=== PATIENT | female | born 1965 | race Caucasian/White ===

== ENCOUNTER 2016-05-17 13:10 | Outpatient (CLI) | payer OTHER ==
[~2016-05-17] VITALS: Ht 162.6 cm; Wt 76.2 kg
[~2016-05-17 13:10] MED LIST: ACETAMINOPHEN TAB 650MG DOSE (2X325MG) PO ONE; AMLO25TA PO; ATEN25TA PO; DRIS50002 PO; FOLI1TAB2 PO; HYDR100C PO; LEVO25TA5 PO; LOMO2.5T PO; PRED20TA PO; TRAZ50TA4 PO; VEDOLIZUMAB 300 MG in NS 250 ML IV ONE; VITA100L PO; diphenhydrAMINE 25 MG CAP PO ONE
== END 2016-05-17 14:35 | disposition home or self-care (01) ==
LOC: M INFU 13:10
PROVIDERS: ATTEND Internal Medicine Gastroenterology
DX: K50.90 Crohn's disease, unspecified, without complications (principal)
CPT/HCPCS: 96413; J3380

== ENCOUNTER 2016-07-29 12:20 | Outpatient (CLI) | payer OTHER ==
[~2016-07-29] VITALS: Ht 162.6 cm; Wt 76.2 kg
[~2016-07-29 12:20] MED LIST changes: -ACETAMINOPHEN TAB 650MG DOSE (2X325MG) PO ONE; -VEDOLIZUMAB 300 MG in NS 250 ML IV ONE; -diphenhydrAMINE 25 MG CAP PO ONE
[2016-07-29] MEDS ORDERED: ACETAMINOPHEN TAB 650MG DOSE (2X325MG) PO ONE (12:30)
[2016-07-29] MEDS ORDERED: diphenhydrAMINE 25 MG CAP PO ONE (12:30)
[2016-07-29] MEDS ORDERED: VEDOLIZUMAB 300 MG in NS 250 ML IV ONE (13:00)
== END 2016-07-29 13:45 | disposition home or self-care (01) ==
LOC: M INFU 12:20
PROVIDERS: ATTEND Internal Medicine Gastroenterology
DX: K50.10 Crohn's disease of large intestine without complications (principal)
CPT/HCPCS: 96413; J3380

== ENCOUNTER 2016-08-09 13:41 | Outpatient (CLI) | payer OTHER ==
[~2016-08-09] VITALS: Ht 162.6 cm; Wt 76.2 kg
[2016-08-09] MEDS ORDERED: ACETAMINOPHEN TAB 650MG DOSE (2X325MG) PO ONE (14:00)
[2016-08-09] MEDS ORDERED: VEDOLIZUMAB 300 MG in NS 250 ML IV ONE (14:00)
[2016-08-09] MEDS ORDERED: diphenhydrAMINE 25 MG CAP PO ONE (14:00)
== END 2016-08-09 15:15 | disposition home or self-care (01) ==
LOC: M INFU 13:41
PROVIDERS: ATTEND Internal Medicine Gastroenterology
DX: K50.10 Crohn's disease of large intestine without complications (principal)
CPT/HCPCS: 96413; J3380

== ENCOUNTER 2016-09-06 13:09 | Outpatient (CLI) | payer OTHER ==
[~2016-09-06] VITALS: Ht 162.6 cm; Wt 76.2 kg
[2016-09-06] MEDS ORDERED: diphenhydrAMINE 25 MG CAP PO ONE (13:30)
[2016-09-06] MEDS ORDERED: ACETAMINOPHEN TAB 650MG DOSE (2X325MG) PO ONE (13:30)
[2016-09-06] MEDS ORDERED: VEDOLIZUMAB 300 MG in NS 250 ML IV ONE (13:30)
== END 2016-09-06 14:40 | disposition home or self-care (01) ==
LOC: M INFU 13:09
PROVIDERS: ATTEND Internal Medicine Gastroenterology
DX: K50.10 Crohn's disease of large intestine without complications (principal)
CPT/HCPCS: 96413; J3380

== ENCOUNTER → 2016-10-18 | Outpatient (CLI) | payer OTHER ==
[~2016-10-18] VITALS: Ht 165.1 cm; Wt 94.3 kg
[~2016-10-18] MED LIST changes: +ENTY1INJ IV; +LIDOCAINE 2% INJ 100 MG/5 ML SDV (FOR ANES.) As Ordered ONE; +NS 1,000 ML IV ONE; +PROPOFOL 200 MG/20 ML VIAL As Ordered ONE
--- NOTE | 2016-10-18 10:20 | ROOR ---
Patient Name: Jordyn Pablo Procedure Date: 10/18/2016 9:54 AM Date of : 1965 Age: 51 Room: [facility] Gender: Female Note Status: Finalized Procedure: Total Colonoscopy to cecum + Bx. Indications: High risk colon cancer surveillance: Crohn's colitis of 8 (or more) years duration Providers: Denys Encinas MD Referring MD: Tanya PABLO Requesting Provider: Medicines: Monitored Anesthesia Care Complications: No immediate complications. Procedure: Pre-Anesthesia Assessment: - The heart rate, respiratory rate, oxygen saturations, blood pressure, adequacy of pulmonary ventilation, and response to care were monitored throughout the procedure. The Colonoscope was introduced through the anus and advanced to the cecum, identified by appendiceal orifice and ileocecal valve. The colonoscopy was performed without difficulty. The patient tolerated the procedure well. The quality of the bowel preparation was fair. Findings: The perianal and digital rectal examinations were normal. Non-bleeding internal hemorrhoids were found during retroflexion. The hemorrhoids were small and Grade I (internal hemorrhoids that do not prolapse). Inflammation characterized by adherent blood, altered vascularity, congestion (edema), erosions, erythema and pseudopolyps was found in a continuous and circumferential pattern from the anus to the cecum. No sites were spared. This was moderate in severity, and when compared to previous examinations, the findings are unchanged. Biopsies were taken with a cold forceps for histology. The exam was otherwise without abnormality. Impression: - Preparation of the colon was fair. - Non-bleeding internal hemorrhoids. - Crohn's disease with colonic involvement. Inflammation was found from the anus to the cecum. This was moderate in severity. The findings are unchanged compared to previous examinations. Biopsied. - The examination was otherwise normal. - The exam was otherwise normal to the cecum. Recommendation: - Patient has a contact number available for emergencies. The signs and symptoms of potential delayed complications were discussed with the patient. Return to normal activities tomorrow. Written discharge instructions were provided to the patient. - High fiber diet. - Discharge patient to home. - Continue present medications. - Await pathology results. - Telephone GI clinic for pathology results in 1 week. - Repeat colonoscopy for surveillance based on pathology results. - Return to referring physician. - The findings and recommendations were discussed with the patient's family. Denys Encinas MD Denys Encinas MD 10/18/2016 10:20:38 AM This report has been signed electronically. Number of Addenda: 0 Note Initiated On: 10/18/2016 9:54 AM Estimated Blood Loss: Estimated blood loss: none.
[2016-10-18 10:35] VITALS: BP 141/99
== END ==
LOC: M OPP 08:54
PROVIDERS: ATTEND Internal Medicine Gastroenterology
DX: K50.10 Crohn's disease of large intestine without complications (principal); K64.0 First degree hemorrhoids; Z79.899 Other long term (current) drug therapy; Z88.8 Allergy status to other drugs, medicaments and biological substances; Z91.040 Latex allergy status; F41.9 Anxiety disorder, unspecified; D64.9 Anemia, unspecified; I10 Essential (primary) hypertension; R53.83 Other fatigue; R63.0 Anorexia; F17.210 Nicotine dependence, cigarettes, uncomplicated; M17.0 Bilateral primary osteoarthritis of knee; M19.071 Primary osteoarthritis, right ankle and foot; M19.072 Primary osteoarthritis, left ankle and foot

== ENCOUNTER 2016-11-01 13:59 | Outpatient (CLI) | payer OTHER ==
[~2016-11-01] VITALS: Ht 162.6 cm; Wt 76.2 kg
[~2016-11-01 13:59] MED LIST changes: +ACETAMINOPHEN TAB 650MG DOSE (2X325MG) PO ONE; -LIDOCAINE 2% INJ 100 MG/5 ML SDV (FOR ANES.) As Ordered ONE; -NS 1,000 ML IV ONE; -PROPOFOL 200 MG/20 ML VIAL As Ordered ONE; +diphenhydrAMINE 25 MG CAP PO ONE
[2016-11-01] MEDS ORDERED: VEDOLIZUMAB 300 MG in NS 250 ML IV ONE (14:30)
== END 2016-11-01 15:40 | disposition home or self-care (01) ==
LOC: M INFU 13:59
PROVIDERS: ATTEND Internal Medicine Gastroenterology
DX: K50.10 Crohn's disease of large intestine without complications (principal); Z79.899 Other long term (current) drug therapy

== ENCOUNTER 2016-12-13 10:33 | Outpatient (CLI) | payer OTHER ==
[~2016-12-13] VITALS: Ht 162.6 cm; Wt 76.2 kg
[~2016-12-13 10:33] MED LIST changes: -ACETAMINOPHEN TAB 650MG DOSE (2X325MG) PO ONE; -FOLI1TAB2 PO; +FOLI1TAB4 PO; +TRAZ50TA11 PO; -TRAZ50TA4 PO; -diphenhydrAMINE 25 MG CAP PO ONE
[2016-12-13] MEDS ORDERED: ACETAMINOPHEN TAB 650MG DOSE (2X325MG) PO ONE (11:00)
[2016-12-13] MEDS ORDERED: VEDOLIZUMAB 300 MG in NS 250 ML IV ONE (11:00)
[2016-12-13] MEDS ORDERED: diphenhydrAMINE 25 MG CAP PO ONE (11:00)
== END 2016-12-13 12:20 | disposition home or self-care (01) ==
LOC: M INFU 10:33
PROVIDERS: ATTEND Internal Medicine Gastroenterology
DX: K50.10 Crohn's disease of large intestine without complications (principal); I10 Essential (primary) hypertension; E03.9 Hypothyroidism, unspecified; D64.9 Anemia, unspecified; M54.5 Low back pain; F41.9 Anxiety disorder, unspecified; M19.072 Primary osteoarthritis, left ankle and foot; F17.210 Nicotine dependence, cigarettes, uncomplicated; Z79.899 Other long term (current) drug therapy; Z79.891 Long term (current) use of opiate analgesic; Z88.8 Allergy status to other drugs, medicaments and biological substances
CPT/HCPCS: 96413; J3380

== ENCOUNTER 2017-01-26 12:52 | Outpatient (CLI) | payer OTHER ==
[~2017-01-26] VITALS: Ht 162.6 cm; Wt 76.4 kg
[2017-01-26] MEDS ORDERED: VEDOLIZUMAB 300 MG in NS 250 ML IV ONE (13:00)
[2017-01-26] MEDS ORDERED: ACETAMINOPHEN TAB 650MG DOSE (2X325MG) PO ONE (13:00)
[2017-01-26] MEDS ORDERED: diphenhydrAMINE 25 MG CAP PO ONE (13:00)
== END 2017-01-26 13:45 | disposition home or self-care (01) ==
LOC: M INFU 12:52
PROVIDERS: ATTEND Internal Medicine Gastroenterology
DX: K50.10 Crohn's disease of large intestine without complications (principal); I12.9 Hypertensive chronic kidney disease with stage 1 through stage 4 chronic kidney disease, or unspecified chronic kidney disease; E03.9 Hypothyroidism, unspecified; N18.9 Chronic kidney disease, unspecified; Z79.899 Other long term (current) drug therapy; Z88.8 Allergy status to other drugs, medicaments and biological substances
CPT/HCPCS: 96413; J3380

== ENCOUNTER 2017-04-03 12:45 | Outpatient (CLI) | payer OTHER ==
[~2017-04-03] VITALS: Ht 162.6 cm; Wt 76.4 kg
[~2017-04-03 12:45] MED LIST changes: +ACETAMINOPHEN TAB 650MG DOSE (2X325MG) PO ONE; +VEDOLIZUMAB 300 MG in NS 250 ML IV ONE; +diphenhydrAMINE 25 MG CAP PO ONE
== END 2017-04-03 14:20 | disposition home or self-care (01) ==
LOC: M INFU 12:45
PROVIDERS: ATTEND Internal Medicine Gastroenterology
DX: K50.90 Crohn's disease, unspecified, without complications (principal)
CPT/HCPCS: 96413; J3380

== ENCOUNTER 2017-05-09 14:03 | Outpatient (CLI) | payer OTHER ==
[2017-05-09] MEDS: diphenhydrAMINE 25 MG CAP PO (13:30)
[2017-05-09] MEDS: ACETAMINOPHEN TAB 650MG DOSE (2X325MG) PO (13:30)
[2017-05-09] MEDS: VEDOLIZUMAB 300 MG in NS 250 ML IV (14:24)
== END 2017-05-09 15:05 | disposition home or self-care (01) ==
LOC: M INFU 14:03
DX: K50.10 Crohn's disease of large intestine without complications (principal)
CPT/HCPCS: 96365

== ENCOUNTER 2017-06-05 10:06 | Outpatient (CLI) | payer OTHER ==
[2017-06-05] MEDS: ACETAMINOPHEN TAB 650MG DOSE (2X325MG) PO (09:30)
[2017-06-05] MEDS: diphenhydrAMINE 25 MG CAP PO (09:30)
[2017-06-05] MEDS: VEDOLIZUMAB 300 MG in NS 250 ML IV (10:39)
== END 2017-06-05 11:10 | disposition home or self-care (01) ==
LOC: M INFU 10:06
DX: K50.90 Crohn's disease, unspecified, without complications (principal)
CPT/HCPCS: 96365

== ENCOUNTER 2017-07-10 13:32 | Outpatient (CLI) | payer OTHER ==
[2017-07-10] MEDS: ACETAMINOPHEN TAB 650MG DOSE (2X325MG) PO (13:00)
[2017-07-10] MEDS: diphenhydrAMINE 25 MG CAP PO (13:00)
[2017-07-10] MEDS: VEDOLIZUMAB 300 MG in NS 250 ML IV (13:41)
== END 2017-07-10 14:30 | disposition home or self-care (01) ==
LOC: M INFU 13:32
DX: K50.10 Crohn's disease of large intestine without complications (principal); I10 Essential (primary) hypertension; E03.9 Hypothyroidism, unspecified; D64.9 Anemia, unspecified; F41.9 Anxiety disorder, unspecified; M19.072 Primary osteoarthritis, left ankle and foot; M54.9 Dorsalgia, unspecified; F17.210 Nicotine dependence, cigarettes, uncomplicated; Z79.899 Other long term (current) drug therapy; Z88.8 Allergy status to other drugs, medicaments and biological substances; Z91.048 Other nonmedicinal substance allergy status
CPT/HCPCS: J3380

== ENCOUNTER → 2017-09-25 | Outpatient (REF) | payer OTHER | LOC: M LAB REF 15:02 | DX: R19.7 Diarrhea, unspecified (principal) ==

== ENCOUNTER → 2017-09-25 | Outpatient (CLI) | payer OTHER ==
[2017-09-25 15:03] LABS: BASO % 0.7 % (0.0-1.0); EOS # 0.1 10^3/uL (0.0-0.50); EOS % 1.6 % (0.0-3.0); HEMATOCRIT 36.3 % (36.0-47.0); HEMOGLOBIN 12.3 g/dl (12.0-15.5); IMMATURE GRANULOCYTE % 0.4 % (0-3.0); LYMPH # 1.5 10^3/uL (1.5-4.5); LYMPH % 27.1 % (24.0-44.0); MEAN CORPUSCULAR HEMOGLOBIN 34.7 pg (27.0-33.0); MEAN CORPUSCULAR HGB CONC 33.9 g/dl (32.0-36.5); MEAN CORPUSCULAR VOLUME 102.5 fl (80.0-96.0); MONO # 0.5 10^3/uL (0.0-0.8); MONO % 8.1 % (0.0-5.0); NEUTROPHILS # 3.5 10^3/uL (1.8-7.7); NEUTROPHILS % 62.1 % (36.0-66.0); PLATELET COUNT, AUTOMATED 177 10^3/uL (150-450); RED BLOOD COUNT 3.54 10^6/uL (4.00-5.40); RED CELL DISTRIBUTION WIDTH 13.8 % (11.5-14.5); WHITE BLOOD COUNT 5.7 10^3/uL (4.0-10.0)
[2017-09-25 15:24] LABS: ALBUMIN 2.3 GM/DL (3.2-5.2); ALBUMIN/GLOBULIN RATIO 0.44 (1.00-1.93); ALKALINE PHOSPHATASE 642 U/L (45-117); ALT/SGPT 63 U/L (12-78); ANION GAP 9 MEQ/L (8-16); AST/SGOT 129 U/L (7-37); BLOOD UREA NITROGEN 5 MG/DL (7-18); C REACTIVE PROTEIN QUANTITATIV 4.97 MG/DL (0.00-0.30); CARBON DIOXIDE LEVEL 28 MEQ/L (21-32); CHLORIDE LEVEL 101 MEQ/L (98-107); CREATININE FOR GFR 0.73 MG/DL (0.55-1.30); GLOMERULAR FILTRATION RATE > 60.0 (>51); GLUCOSE, FASTING 105 MG/DL (70-100); POTASSIUM SERUM 3.4 MEQ/L (3.5-5.1); SODIUM LEVEL 138 MEQ/L (136-145); TOTAL PROTEIN 7.5 GM/DL (6.4-8.2)
== END ==
LOC: M LAB 14:30
DX: K50.90 Crohn's disease, unspecified, without complications (principal)
CPT/HCPCS: 80053

== ENCOUNTER → 2017-10-16 | Outpatient (REF) | payer OTHER | LOC: M LAB REF 12:29 | DX: R19.7 Diarrhea, unspecified (principal) ==

== ENCOUNTER 2017-12-04 12:44 | Outpatient (CLI) | payer OTHER ==
[2017-12-04] MEDS: diphenhydrAMINE 25 MG CAP PO (12:00)
[2017-12-04] MEDS: ACETAMINOPHEN TAB 650MG DOSE (2X325MG) PO (12:00)
[2017-12-04] MEDS: VEDOLIZUMAB 300 MG in NS 250 ML IV (13:11)
== END 2017-12-04 14:00 | disposition home or self-care (01) ==
LOC: M INFU 12:44
DX: K50.10 Crohn's disease of large intestine without complications (principal); Z88.8 Allergy status to other drugs, medicaments and biological substances; Z91.040 Latex allergy status; Z91.048 Other nonmedicinal substance allergy status
CPT/HCPCS: J3380

== ENCOUNTER 2017-12-18 12:47 | Outpatient (CLI) | payer OTHER ==
[2017-12-18] MEDS: VEDOLIZUMAB 300 MG in NS 250 ML IV (13:00)
[2017-12-18] MEDS: ACETAMINOPHEN TAB 650MG DOSE (2X325MG) PO (13:00)
[2017-12-18] MEDS: diphenhydrAMINE 25 MG CAP PO (13:00)
== END 2017-12-18 14:15 | disposition home or self-care (01) ==
LOC: M INFU 12:47
DX: K50.10 Crohn's disease of large intestine without complications (principal); Z91.048 Other nonmedicinal substance allergy status; Z79.899 Other long term (current) drug therapy; Z79.52 Long term (current) use of systemic steroids; Z88.8 Allergy status to other drugs, medicaments and biological substances
CPT/HCPCS: J3380

== ENCOUNTER 2018-01-15 10:00 | Outpatient (CLI) | payer OTHER ==
[2018-01-15] MEDS: ACETAMINOPHEN TAB 650MG DOSE (2X325MG) PO (10:00)
[2018-01-15] MEDS: diphenhydrAMINE 25 MG CAP PO (10:00)
[2018-01-15] MEDS: VEDOLIZUMAB 300 MG in NS 250 ML IV (10:42)
== END 2018-01-15 11:30 | disposition home or self-care (01) ==
LOC: M INFU 10:00
DX: K50.112 Crohn's disease of large intestine with intestinal obstruction (principal); I10 Essential (primary) hypertension; E07.9 Disorder of thyroid, unspecified; F41.9 Anxiety disorder, unspecified; F32.9 Major depressive disorder, single episode, unspecified; Z79.899 Other long term (current) drug therapy; Z91.040 Latex allergy status; Z91.048 Other nonmedicinal substance allergy status; Z88.8 Allergy status to other drugs, medicaments and biological substances
CPT/HCPCS: J3380

== ENCOUNTER 2018-02-12 12:02 | Outpatient (CLI) | payer SELFPAY, OTHER ==
[2018-02-12] MEDS: ACETAMINOPHEN TAB 650MG DOSE (2X325MG) PO (12:00)
[2018-02-12] MEDS: diphenhydrAMINE 25 MG CAP PO (12:00)
[2018-02-12] MEDS: VEDOLIZUMAB 300 MG in NS 250 ML IV (12:45)
== END 2018-02-12 13:25 | disposition home or self-care (01) ==
LOC: M INFU 12:02
DX: K50.10 Crohn's disease of large intestine without complications (principal); E03.9 Hypothyroidism, unspecified; D64.9 Anemia, unspecified; F41.9 Anxiety disorder, unspecified; F32.9 Major depressive disorder, single episode, unspecified; M12.9 Arthropathy, unspecified; F17.210 Nicotine dependence, cigarettes, uncomplicated
CPT/HCPCS: J3380

== ENCOUNTER → 2020-03-02 | Outpatient (CLI) | payer MEDICAID ==
[~2020-03-02] MED LIST changes: -ACETAMINOPHEN TAB 650MG DOSE (2X325MG) PO ONE; -DRIS50002 PO; +DRIS50003 PO; +FOLI1TAB11 PO; -FOLI1TAB4 PO; +METO1TAB7; +TRAZ-252 PO; -TRAZ50TA11 PO; -VEDOLIZUMAB 300 MG in NS 250 ML IV ONE; +VITA1CAP25 PO; -diphenhydrAMINE 25 MG CAP PO ONE
--- NOTE | 2020-03-02 13:36 | ECGEPIP ---
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 No prior ECG available for comparison at the time of interpretation. Electronically Signed on 03-02-2020 13:36:00 EDT by Hans Butcher
[2020-03-02 13:40] LABS: HEMATOCRIT 36.2 % (36.0-47.0); HEMOGLOBIN 11.2 g/dl (12.0-15.5); MEAN CORPUSCULAR HEMOGLOBIN 35.3 pg (27.0-33.0); MEAN CORPUSCULAR HGB CONC 30.9 g/dl (32.0-36.5); PLATELET COUNT, AUTOMATED 273 10^3/uL (150-450); RED BLOOD COUNT 3.17 10^6/uL (4.00-5.40); WHITE BLOOD COUNT 5.6 10^3/uL (4.0-10.0)
[2020-03-02 13:50] LABS: MEAN CORPUSCULAR VOLUME 114.2 fl (80.0-96.0)
[2020-03-02 13:51] LABS: INR 1.11; PROTHROMBIN TIME 14.5 SECONDS (12.5-14.3)
[2020-03-02 14:02] LABS: ALBUMIN 3.1 GM/DL (3.2-5.2); ALT/SGPT 121 U/L (12-78); BILIRUBIN,TOTAL 0.6 MG/DL (0.2-1.0); BLOOD UREA NITROGEN 22 MG/DL (7-18); CALCIUM LEVEL 9.4 MG/DL (8.5-10.1); CARBON DIOXIDE LEVEL 24 MEQ/L (21-32); CHLORIDE LEVEL 109 MEQ/L (98-107); CREATININE FOR GFR 0.88 MG/DL (0.55-1.30); GLOMERULAR FILTRATION RATE > 60.0 (>51); GLUCOSE, FASTING 95 MG/DL (70-100); POTASSIUM SERUM 4.6 MEQ/L (3.5-5.1); SODIUM LEVEL 136 MEQ/L (136-145)
[2020-03-02 14:15] LABS: ERYTHROCYTE SEDIMENTATION RATE 63 mm/hr (0-30)
--- NOTE | 2020-03-02 17:20 | REP ---
INDICATION: RT KNEE ARTHRITIS, PREOP TESTING COMPARISON: 05/18/2007. TECHNIQUE: PA/Lateral FINDINGS: The heart is normal in size. There is no hilar or mediastinal adenopathy. The lungs are clear. The pleural angles are blunted which is a new finding, representing mild bilateral pleural fluid or thickening. There are mild degenerative changes of the spine. IMPRESSION: Mild bilateral pleural fluid or thickening. No infiltrate seen. <Electronically signed by Santos Rico > 03/02/20 [id number]
== END ==
LOC: M LAB 13:06
PROVIDERS: ATTEND Orthopaedic Surgery
DX: Z01.818 Encounter for other preprocedural examination (principal); M17.11 Unilateral primary osteoarthritis, right knee; R94.31 Abnormal electrocardiogram [ECG] [EKG]

== ENCOUNTER → 2020-03-14 | Outpatient (CLI) | payer MEDICAID | LOC: M LABSMTC 08:38 | PROVIDERS: ATTEND Anesthesiology | DX: Z01.818 Encounter for other preprocedural examination (principal); Z20.828 Contact with and (suspected) exposure to other viral communicable diseases | CPT/HCPCS: C9803; U0003 ==

== ENCOUNTER 2020-03-19 09:33 | Inpatient (IN) | payer MEDICAID ==
--- NOTE | 2020-03-16 07:16 | HPE ---
DATE OF ADMISSION: 03/19/2020 ATTENDING PHYSICIAN: Derick Mccurdy MD CHIEF COMPLAINT: Right knee pain and stiffness. HISTORY OF PRESENT ILLNESS: The patient is a 54-year-old female with progressively worsening right knee pain and stiffness. She failed to improve with conservative measures. She continues to have symptoms with weightbearing activities and activities of daily living. She consented for an elective right total knee arthroplasty with Dr. Mccurdy for the continued symptoms. Medical optimization completed with Dr. Chavarria. CURRENT MEDICATIONS: Levothyroxine 125 mcg daily, lidocaine patches 4%, metoprolol 25 mg daily, trazodone 100 mg daily. ALLERGIES: ADHESIVES. CHRONICAL MEDICAL CONDITIONS: 1. Hypertension. 2. Hyperlipidemia. 3. Thyroid disease. 4. Anxiety. 5. Insomnia. PAST SURGICAL HISTORY: None. SOCIAL HISTORY: The patient denies tobacco or alcohol use. REVIEW OF SYSTEMS: The patient denies fevers or chills, nausea or vomiting or diarrhea. Denies chest pain, shortness of breath, lightheadedness, dizziness or headaches. She denies any recent upper respiratory or urinary tract infection symptoms. She does continue to have right knee pain with weightbearing activities and activities of daily living, PHYSICAL EXAMINATION: General: Well nourished, well developed female in no apparent distress. She is alert, oriented and cooperative. Mood and affect are appropriate. Vital signs: Height 55, weight 203 pounds. Temperature 96.8, blood pressure 120/82, heart rate 68, respirations 17. Neck supple without lymphadenopathy. Heart: Regular rate and rhythm. Lungs: Clear to auscultation bilaterally. Breathing is regular and non-labored. Abdomen: Soft and nontender. Bowel sounds are present. Musculoskeletal: Right knee: No gross abnormalities. There is quite a bit of tenderness to palpation along the lateral joint line. The patient can extend the knee to 10 degrees and flex to 110 degrees. Right lower extremity strength is 5/5. No hip irritability was noted with range of motion testing. Calf is soft and nontender, without evidence of deep venous thrombosis (DVT). She is neurovascularly intact distally. LABORATORY DATA: Right knee x-ray and MRI notable for end-stage degenerative changes with numerous large subchondral bone infarct. Chest x-ray: Mild bilateral pleural fluid or thickening. No infiltrates seen. Electrocardiogram (EKG): Sinus bradycardia with possible right ventricular conduction delay with nonspecific ST-T wave abnormalities. Prothrombin elevated at 14.5, INR 1.11. Comprehensive metabolic profile: Fasting glucose 95, BUN elevated at 22, creatinine 0.88, Glomerular filtration rate (GFR) greater than 60, sodium 136, k 4.6, chloride elevated at 109, carbon dioxide 24, anion gap decreased at 3, calcium 9.4, AST elevated at 105, ALT elevated at 121, alkaline phosphatase elevated at 288. Total bilirubin 0.6, total protein 7.0, albumin decreased at 3.1, albumin globulin ratio decreased at 0.8. Complete blood count: ESR elevated at 63, WBC is 5.6, RBC is decreased at 3.17, hemoglobin decreased at 11.2, hematocrit 36.2, platelets 273. IMPRESSION: Right knee osteoarthritis with x-rays notable for end-stage degenerative changes with numerous large subchondral bone infarcts. PLAN: The patient has consented for an elective right total arthroplasty with Dr. Mccurdy for continued symptoms. Medical optimization pending with Dr. Chavarria. The patient will start using her Bactroban and Hibiclens as directed. She will call [facility] the day before her surgery for a report time. The patient will be n.p.o. after midnight the night prior to surgery unless instructed to take any medications with a small sip of water in the morning of. She will follow her primary care managers recommendations on how to take her daily medications. ALESSIA
[2020-03-19] VITALS (7 sets, daily range): BP systolic 112–120; BP diastolic 50–64
[~2020-03-19] VITALS: Ht 165.1 cm; Wt 83.0 kg
[~2020-03-19 09:33] MED LIST changes: +LR 1,000 ML IV ONE; +ceFAZolin SOD 2 GM in IV 1 EA IV ONE
[2020-03-19] MEDS ORDERED: TRANEXAMIC ACID 100 MG/ML 10ML VIAL As Ordered ONE (10:08)
[2020-03-19] MEDS ORDERED: BUPIVACAINE HCL 0.25% 10ML VIAL As Ordered ONE (10:08)
[2020-03-19] MEDS ORDERED: BUPIVACAINE LIPOSOME/PF 1.3% 20ML VIAL (13.3MG/ML)(EXPAREL)(C9290 PER1MG) As Ordered ONE (10:09)
[2020-03-19] MEDS ORDERED: EPINEPHrine INJ 1 MG/ML 1ML AMP As Ordered ONE (10:09)
[2020-03-19] MEDS ORDERED: ceFAZolin 1GM VIAL (J0690 PER 500MG) As Ordered ONE (10:09)
[2020-03-19] MEDS ORDERED: propofoL 500 MG/50 ML VIAL As Ordered ONE (10:18)
[2020-03-19] MEDS ORDERED: fentaNYL 100 MCG/2 ML INJECTION (J3010) As Ordered ONE ×2 (10:18→10:23)
[2020-03-19] MEDS ORDERED: LIDOCAINE 2% 100MG/5ML SDV (FOR ANES.) As Ordered ONE (10:18)
[2020-03-19] MEDS ORDERED: MIDAZOLAM INJ 2MG/2ML VIAL (J2250 PER 1MG) As Ordered ONE ×2 (10:18→10:23)
[2020-03-19] MEDS: fentaNYL 100 MCG/2 ML INJECTION (J3010) IV SCH ×2 (10:32→10:35)
[2020-03-19] MEDS: MIDAZOLAM INJ 2MG/2ML VIAL (J2250 PER 1MG) IV SCH ×2 (10:32→10:35)
[2020-03-19] MEDS ORDERED: dexameTHASONE 10MG/1ML VIAL PRES.FREE (J1100 PER 1MG) ONE (11:41)
[2020-03-19] MEDS ORDERED: ROPIvacaine 0.5% 30ML INJECTION (J2795 PER 1MG) ONE (11:41)
[2020-03-19] MEDS ORDERED: EPINEPHrine INJ 1 MG/ML 1ML AMP ONE (11:41)
[2020-03-19] MEDS ORDERED: dexameTHASONE 4 MG/ML 1ML VIAL (J1100 PER 1MG) As Ordered ONE (12:10)
[2020-03-19] MEDS ORDERED: ONDANSETRON 4MG/2ML VIAL As Ordered ONE (12:10)
[2020-03-19] MEDS ORDERED: KETOROLAC 60MG 2ML VIAL As Ordered ONE (12:10)
[2020-03-19] MEDS ORDERED: propofoL 200 MG/20 ML VIAL As Ordered ONE ×2 (12:48→13:12)
[2020-03-19] MEDS ORDERED: ONDANSETRON 4MG/2ML VIAL IV PRN ×2 (14:00→14:15)
[2020-03-19] MEDS ORDERED: LR 1,000 ML IV SCH ×2 (14:00→14:15)
[2020-03-19] MEDS ORDERED: fentaNYL 100 MCG/2 ML INJECTION (J3010) IV PRN (14:00)
[2020-03-19] MEDS ORDERED: METOCLOPRAMIDE INJ 10MG/2ML VIAL (J2765 PER 1) IV PRN (14:00)
--- NOTE | 2020-03-19 14:13 | REP ---
INDICATION: POST OP IN PACU. COMPARISON: None. TECHNIQUE: Three views, portable FINDINGS: Skin alex noted anteriorly. There is a right total knee arthroplasty present with subcutaneous air and fluid with air bubbles in the suprapatellar bursa as in immediate postoperative change. The 3 components of the prosthesis are well aligned in relationship to each other and the little shell tribe bone. The long-stem this of the femoral and tibial prosthetic components. Tightly apply to the medullary cavity. IMPRESSION: Status post right total knee arthroplasty with the 3 components of the prosthesis well aligned in relationship to each other and the little shell tribe bone. Immediate postoperative changes are present as expected. <Electronically signed by Hudson Leary > 03/19/20 [id number]
[2020-03-19] MEDS ORDERED: PERCOCET 5MG/325MG TAB PO PRN (14:15)
[2020-03-19] MEDS ORDERED: MORPHINE 4 MG/ML 1ML VIAL/SYRINGE (J2270) IV PRN (14:15)
[2020-03-19] MEDS ORDERED: MORPHINE 2 MG/ML 1ML VIAL (J2270) IV PRN (14:15)
[2020-03-19] MEDS ORDERED: ACETAMINOPHEN TAB 650MG DOSE (2X325MG) PO PRN (14:15)
[2020-03-19] MEDS: oxyCODONE 5MG TAB PO PRN ×2 (14:21→14:52)
[2020-03-19] MEDS: MEPERIDINE INJ 25 MG/ML VIAL (J2175) IV PRN ×2 (14:55→15:00)
--- NOTE | 2020-03-19 16:15 | CR.PDOC ---
General Date of Consultation: Mar 19, 2020 Referring Provider: Derick Mccurdy Consultation REASON FOR CONSULTATION/CHIEF COMPLAINT: Right total knee arthroplasty HISTORY OF PRESENT ILLNESS: Mrs. Pablo is a 54 year old female with Crohn's disease s/p resection and colostomy bag and hypothyroidism here for right total knee arthroplasty. About 2 years ago she had the resection and colostomy bag placement. Prior to this procedure, she was on fdc steroids which may have resulted in avascular necrosis of the right hip. She blames the steroids on her right knee, right shoulder, and left ankle pain. She has failed conservative measures for the right knee and has decided to proceed with the right total knee arthroplasty which was performed today, 03/19/2020. She was seen downstairs in the PACU. Denies any fever, chest pain, dyspnea, abdominal pain, or dysuria. ALLERGIES: Please see below. HOME MEDICATIONS: Please see below. PAST MEDICAL HISTORY: 1. Crohn's disease s/p resection and colostomy bag placement 2. Hypertension 3. Avascular necrosis of right hip PAST SURGICAL HISTORY: 1. Right knee total arthroplasty 03/19/2020 2. Total hip replacement 2007 3. Ostomy bag placement FAMILY HISTORY: Father: CHF Mother: CHF, lung cancer SOCIAL HISTORY: Tobacco use: Tried quitting in the past, now intermittently smokes. Last cigarette was 3 weeks ago. Smoking since she was 17 years old ETOH: Denies Illicit drug use: Rarely smokes marijuana REVIEW OF SYSTEMS: CONSTITUTIONAL: Denies any fever. Denies lightheadedness or dizziness. ENT: Denies sore throat RESPIRATORY: Denies shortness of breath. Denies cough. CARDIOVASCULAR: Denies chest pain. Denies palpitations. GASTROINTESTINAL: Denies abdominal pain. GENITOURINARY: Denies dysuria. CUTANEOUS: Denies rashes. MUSCULOSKELETAL: Reports right shoulder pain and left ankle pain ENDOCRINE: Denies polydipsia. Denies polyphagia. PSYCHOLOGICAL: Denies depression. PHYSICAL EXAMINATION: VITAL SIGNS: Please see below. GENERAL: Comfortable, in no apparent distress. HEENT: Head normocephalic/atraumatic, EOMI, sclera clear. NECK: Supple RESPIRATORY: Lungs clear to auscultation bilaterally CARDIOVASCULAR: Regular rate and rhythm. ABDOMEN: Ostomy bag with green stool. Otherwise soft, nontender, normal bowel sounds. MUSCLE SKELETAL: Muscle strength in arms 5/5. Moves left leg without difficulty. Right knee is wrapped up NEUROLOGICAL: CN 312 grossly intact. PSYCHOLOGICAL: Normal mood and affect LABORATORY DATA: Please see below. ASSESSMENT/PLAN: 1. Right knee arthritis s/p right total knee arthroplasty -Operated on 03/19/2020 -Orthopedic team primary 2. Hypothyroidism -Continue levothyroxine 3. Hypertension -Will restart Toprol XL 4. Insomnia -Night time Trazodone 5. DVT ppx -Per orthopedic team (rivaroxaban) Vital Signs/I&O Vital Signs Date Time Temp Pulse Resp B/P (MAP) Pulse Ox O2 Delivery O2 Flow Rate FiO2 03/19/20 15:06 57 138/66 (90) 95 03/19/20 15:00 16 Room Air 03/19/20 15:00 97.0 2.0 Allergies Coded Allergies: adhesive (Verified Allergy, Intermediate, redness, swelling, itching, 03/18/20) lisinopril (Verified Adverse Reaction, Intermediate, kidney failure, 03/18/20) Home Medications Scheduled Levothyroxine Sodium (Levothyroxine Sodium) 25 Mcg Tab, 25 MCG PO DAILY, (Reported) Trazodone HCl (Trazodone HCl) 50 Mg Tab, 50 MG PO QHS, (Reported) Miscellaneous Medications Metoprolol Succinate (Metoprolol Succinate) 50 Mg Tab.er.24h, (Reported) CAMPBELL JEFF DO Mar 19, 2020 16:05
[2020-03-19 16:29] LABS: HEMATOCRIT 33.7 % (36.0-47.0); HEMOGLOBIN 10.4 g/dl (12.0-15.5); MEAN CORPUSCULAR HEMOGLOBIN 34.2 pg (27.0-33.0); MEAN CORPUSCULAR HGB CONC 30.9 g/dl (32.0-36.5); MEAN CORPUSCULAR VOLUME 110.9 fl (80.0-96.0); PLATELET COUNT, AUTOMATED 234 10^3/uL (150-450); RED BLOOD COUNT 3.04 10^6/uL (4.00-5.40); WHITE BLOOD COUNT 6.6 10^3/uL (4.0-10.0)
[2020-03-19 16:58] LABS: BLOOD UREA NITROGEN 12 MG/DL (7-18); CARBON DIOXIDE LEVEL 22 MEQ/L (21-32); CHLORIDE LEVEL 109 MEQ/L (98-107); CREATININE FOR GFR 0.59 MG/DL (0.55-1.30); GLOMERULAR FILTRATION RATE > 60.0 (>51); GLUCOSE, FASTING 118 MG/DL (70-100); POTASSIUM SERUM 4.6 MEQ/L (3.5-5.1); SODIUM LEVEL 137 MEQ/L (136-145)
[2020-03-19] MEDS: ceFAZolin SOD 2 GM in IV 1 EA IV SCH (18:33)
[2020-03-19] MEDS: PERCOCET 5MG/325MG TAB PO PRN (19:35)
[2020-03-19] MEDS: traZODone 50 MG TAB PO SCH (19:35)
[2020-03-20] VITALS: BP 111/59
[2020-03-20] MEDS: PERCOCET 5MG/325MG TAB PO PRN ×6 (01:54→22:32)
[2020-03-20 02:00] VITALS: BP 137/67
[2020-03-20] MEDS: LEVOTHYROXINE 25MCG TABLET (0.025MG) PO SCH (04:31)
[2020-03-20] MEDS: ceFAZolin SOD 2 GM in IV 1 EA IV SCH (04:32)
[2020-03-20 06:00] VITALS: BP 127/60
[2020-03-20] MEDS ORDERED: PERC5TAB12 PO (06:23)
[2020-03-20] MEDS ORDERED: XARE10TA PO (06:23)
[2020-03-20] MEDS: MOM 30ML SUSPENSION UDC PO SCH ×2 (09:00→10:13)
[2020-03-20] MEDS: METOPROLOL SUCC (TopROL XL) 50MG **XL** TAB PO SCH (09:06)
[2020-03-20] MEDS: MIRALAX *UNIT DOSE* 17GM PACKET PO SCH (09:06)
[2020-03-20 10:00] VITALS: BP 126/75
--- NOTE | 2020-03-20 10:58 | RO ---
DATE OF OPERATION: 03/19/2020 PREOPERATIVE DIAGNOSIS: Right knee osteoarthritis and avascular necrosis (AVN) POSTOPERATIVE DIAGNOSIS: Right knee osteoarthritis and avascular necrosis (AVN) PROCEDURE: Right total knee arthroplasty using the TC3 DePuy instrumentation with stems due to significant amount of bone at the joint surface. I used a size 2 femur, posterior stabilized with an 18 mm x 175 stem and a 2.5 tibial tray with a 16 mm x 175 stem. A 15 polyethylene 32 patellar button. SURGEON: Derick Mccurdy MD ANCHORMAN: ANDRES Romero ANESTHESIA: Spinal. ESTIMATED BLOOD LOSS: 100 ml This is coded as an unusual difficult procedure due to the extensive avascular necrosis (AVN) that was present. We elected to have the TC3 revision instruments here as a backup in case her bone quality was inadequate and we felt that we needed stems to support the prosthesis. This added significant time and difficulty to the procedure; it took closer to an hour and a half to do and was much more involved with the implantation of the stems, the preparation of the bone and the involvement of much more complex system. OPERATIVE PROCEDURE: The patient was taken to the operating room and placed in the supine position after a spinal anesthesia was induced. The right lower extremity was prepped and draped in the usual sterile fashion. Time-out was performed, tourniquet was inflated. I then created a longitudinal incision over the anterior aspect of the knee and sharply dissected down through subcutaneous tissue. Performed a medial parapatellar arthropathy per routine. Everted the patella and flexed the knee. I used the canal initiating reamer followed by the canal finding reamer and the femoral cut was made 7 degrees of valgus and 9 mm cut; this was pinned in place and the distal femoral cut was made. I then sized the femur to be a 2.5 initially and put the cutting block into place for the ATTUNE and then made these remaining cuts. It was immediately evident that the avascular necrosis (AVN) involved a significant portion of the bone surfaces even after the cuts. I was hoping I would be down to more adequate bone to support the prosthesis. I then prepared the tibia and the tibial alignment guide was placed and an appropriate amount of valgus and posterior slop. The proximal tibial cut was made 10 off the high side, which was the medial side, which took just a couple of mm off the low side, which was very dished laterally due to some compression deformity and collapse of the lateral tibial plateau. This tibial cut was made. The PCL of course was sacrificed due to the thickness of this cut and then the bone surfaces were noted to be very soft ,in the proximal tibia, I could basically just push my finger down through the metaphysis and I was concerned about the strength of the bony rim. So, I elected to go with stem components on both sides, so we converted all the instrumentation over the TC3 system. I began by using the hand reamers on the femoral side after removing any trial components. I had also removed soft tissues and osteophytes from either side of the knee. Sequentially reamed up to a size 18 on the femoral side and left the broach handle in. Put the cutting block on the end of this and reference off the anterior cut. I decided to down size to a 2, partly because I used spacer blocks prior to this and it was a light tight in flexion and the 2 seemed to fit better with the TC3 system. I was able to take a little bit off of the posterior aspect of the femur and a little bit off the chamfer cuts. We then assembled the trial component and the appropriate amount of valgus and dialed 2 mm posterior on the femoral component with the assembly. I then inserted in the trial femoral component which fit very nicely. The tibia was prepared again by hand reaming. I elected to use a metaphyseal sleeve again for further support in this very poor bone, so this was broached down as well. The overall tibia cut was excellent. At this point, the trial components were placed. I placed a size 12.5 and then a 15 polyethylene on the tibial tray and put the knee through range of motion. I was very pleased with this 15. The alignment was excellent. The stability was excellent and the components were excellent. I then free hand cut the patella and moved about 7 mm of bone, sized to be a 32. The drill holes were placed and the trial button was placed, which tracked very nicely, did not need a lateral release. I then removed all the trial components and on the back table assembled all the components including the femoral component with the bolt and the stems attached and the appropriate amount of valgus off setting the femur so it would set back 2 more mm as I did with the trial and the assembled the tibial component. I tightened everything down per protocol. I then irrigated copiously, placed the Exparel in the deep tissues and dried the surfaces and then cemented in the tibial tray by putting cement around the rim of the bone and around the undersurface of the prosthesis, but I also put some around the sleeve. I then slid the sleeve down and then the stem and tray were impacted down which fit very nicely, removed excess bone cement. Cemented on the femoral component in a similar fashion, but just putting bone on the end of the femur, impacted this in place and removed excess bone cement. We placed the 15 polyethylene from the TC3 posterior, stabilized, reduced the knee. The knee had excellent alignment and stability. I then cemented in the patellar component and held this in place with a clamp. I then irrigated copiously, placed the TXA in the deep tissues and closed the deep layer with interrupted #1 Vicryl and running STRATAFIX, doing one final deep irrigation prior to closure. I then irrigated, closed the subcutaneous tissues with 2-0 Vicryl, the skin with alex. The tourniquet had been deflated and the patellar clamp had been removed once the cement had hardened. Sterile dressing was applied and she was taken to the recovery room in stable condition. There were no known complications. The plan will be routine postop. The personal assistant was instrumental and positioning the knee, holding retractors, mixing the bone cement, assisting in wound closure and assembly of the components. ALESSIA
--- NOTE | 2020-03-20 11:27 | IPN ---
ORTHOPAEDIC PROGRESS NOTE DATE: 03/19/2020 SUBJECTIVE AND PLAN: Patient seen and examined. She wishes to go ahead with a right total knee arthroplasty. She has extensive AVN involving her distal femur and proximal tibia. She understands the nature of this, the risks of bleeding, infection, damage to nerves and vessels, persistent pain, velazquez loosening, blood clots, medical problems, among others. The prognosis is more limited with extensive AVN than it is with extensive arthritis in my opinion for knee replacement and she understands this. ALESSIA
[2020-03-20 14:00] VITALS: BP 125/74
[2020-03-20] MEDS: RIVAROXABAN 10 MG TAB (XARELTO) PO SCH (18:33)
[2020-03-20] MEDS: traZODone 50 MG TAB PO SCH (21:14)
[2020-03-20 22:00] VITALS: BP 114/56
[2020-03-21] MEDS: PERCOCET 5MG/325MG TAB PO PRN ×5 (02:59→20:10)
[2020-03-21] MEDS: LEVOTHYROXINE 25MCG TABLET (0.025MG) PO SCH (05:24)
[2020-03-21 06:00] VITALS: BP 126/61
[2020-03-21] MEDS: MOM 30ML SUSPENSION UDC PO SCH (08:12)
[2020-03-21] MEDS: MIRALAX *UNIT DOSE* 17GM PACKET PO SCH (08:12)
[2020-03-21] MEDS: METOPROLOL SUCC (TopROL XL) 50MG **XL** TAB PO SCH (08:12)
[2020-03-21 14:00] VITALS: BP 124/73
[2020-03-21] MEDS: RIVAROXABAN 10 MG TAB (XARELTO) PO SCH (16:54)
[2020-03-21] MEDS: traZODone 50 MG TAB PO SCH (20:09)
[2020-03-21 22:00] VITALS: BP 128/61
[2020-03-22] MEDS: PERCOCET 5MG/325MG TAB PO PRN ×5 (01:00→20:57)
[2020-03-22] MEDS: LEVOTHYROXINE 25MCG TABLET (0.025MG) PO SCH (05:40)
[2020-03-22 06:00] VITALS: BP 133/65
[2020-03-22] MEDS ORDERED: MORPHINE 15 MG SA TAB PO ONE (07:30)
[2020-03-22] MEDS: METOPROLOL SUCC (TopROL XL) 50MG **XL** TAB PO SCH (08:59)
[2020-03-22] MEDS: MOM 30ML SUSPENSION UDC PO SCH (09:00)
[2020-03-22] MEDS: MIRALAX *UNIT DOSE* 17GM PACKET PO SCH (09:00)
[2020-03-22 14:00] VITALS: BP 114/51
[2020-03-22] MEDS: RIVAROXABAN 10 MG TAB (XARELTO) PO SCH (17:05)
[2020-03-22] MEDS: traZODone 50 MG TAB PO SCH (20:58)
[2020-03-22 21:59] VITALS: BP 116/58
[2020-03-23] MEDS: PERCOCET 5MG/325MG TAB PO PRN ×5 (00:45→21:52)
[2020-03-23] MEDS: LEVOTHYROXINE 25MCG TABLET (0.025MG) PO SCH (05:40)
[2020-03-23 06:00] VITALS: BP 143/60
[2020-03-23] MEDS ORDERED: XARE10TA PO (06:06)
[2020-03-23] MEDS: MOM 30ML SUSPENSION UDC PO SCH (09:00)
[2020-03-23] MEDS: MIRALAX *UNIT DOSE* 17GM PACKET PO SCH (09:00)
[2020-03-23] MEDS: METOPROLOL SUCC (TopROL XL) 50MG **XL** TAB PO SCH (09:20)
[2020-03-23] MEDS ORDERED: MAALOX 30 ML SUSP *UDC PO ONE (11:00)
[2020-03-23] MEDS: RIVAROXABAN 10 MG TAB (XARELTO) PO SCH (17:49)
[2020-03-23] MEDS: traZODone 50 MG TAB PO SCH (20:31)
[2020-03-24] MEDS: LEVOTHYROXINE 25MCG TABLET (0.025MG) PO SCH (05:36)
[2020-03-24] MEDS: PERCOCET 5MG/325MG TAB PO PRN ×3 (05:37→14:59)
[2020-03-24 06:00] VITALS: BP 126/44
[2020-03-24] MEDS ORDERED: XARE10TA PO (07:55)
[2020-03-24] MEDS: MIRALAX *UNIT DOSE* 17GM PACKET PO SCH (09:00)
[2020-03-24] MEDS: MOM 30ML SUSPENSION UDC PO SCH (09:00)
[2020-03-24 09:17] VITALS: BP 126/44
[2020-03-24] MEDS: METOPROLOL SUCC (TopROL XL) 50MG **XL** TAB PO SCH (09:17)
--- NOTE | 2020-03-24 10:32 | IPNPDOC ---
Text Note Date of Service The patient was seen on 03/24/20. NOTE Subjective: Patient is a 54-year-old female with a PMHx Crohn's disease (s/p resection and colostomy), HTN, Avascular necrosis of right hip who presented to the hospital for a total right knee arthroplasty with orthopedic surgery. [facility] service was consulted for medical management. Patient was seen and examined at the bedside. Currently patient denies any chest pain, shortness of breath, palpitations, nausea, vomiting, abdominal pain or diarrhea. Patient has been up and working with physical therapy. She has been cleared for discharge home with outpatient rehabilitation Objective: Vitals (See below) General: Lying in bed, no acute distress, comfortable, AAOx3 HEENT: NC, AT CVS: +S1S2 Lungs: Fair air entry b/l, no appreciable wheezing / rhonchi / rales Abdomen: Soft, ND, NT Extremities: - Edema, - Calf tenderness Assessment and plan: Right knee arthritis s/p elective right total knee arthroplasty (03/19/2020) - Has received outpatient medical clearance from his primary care provider - Pain control and regulation and physical therapy at the direction of primary orthopedic team - Has been cleared by PT for DC home Hypothyroidism - c/w levothyroxine HTN - c/w Metoprolol Insomnia - c/w Trazodone PRN Crohn's disease - s/p resection and colostomy DVT ppx - As per orthopedic team Disposition: - DC home today VS,Fishbone, I+O VS, Fishbone, I+O Vital Signs Date Time Temp Pulse Resp B/P (MAP) Pulse Ox O2 Delivery O2 Flow Rate FiO2 03/24/20 09:17 70 126/44 03/24/20 06:07 18 03/24/20 06:00 98.5 93 Room Air 03/19/20 15:00 2.0 I&O- Last 24 Hours up to 6 AM 03/24/20 06:00 Intake Total 990 ml Output Total 675 ml Balance 315 ml BRIAN JEAN MD Mar 24, 2020 10:32
== END 2020-03-24 15:35 | disposition home health service (06) | DRG 302 ==
LOC: M OR 09:33 → M MS5PR 15:20
PROVIDERS: ADMIT Orthopaedic Surgery; ATTEND Orthopaedic Surgery
PROC: 0SRC0J9 Replacement of Right Knee Joint with Synthetic Substitute, Cemented, Open Approach (ICD-10-PCS; principal; 2020-03-19 11:45)
DX: M17.11 Unilateral primary osteoarthritis, right knee (principal); I10 Essential (primary) hypertension; E78.5 Hyperlipidemia, unspecified; F41.9 Anxiety disorder, unspecified; G47.00 Insomnia, unspecified; M87.051 Idiopathic aseptic necrosis of right femur; F17.210 Nicotine dependence, cigarettes, uncomplicated; J44.9 Chronic obstructive pulmonary disease, unspecified; F32.9 Major depressive disorder, single episode, unspecified; E03.9 Hypothyroidism, unspecified; Z79.899 Other long term (current) drug therapy; Z93.3 Colostomy status; Z88.8 Allergy status to other drugs, medicaments and biological substances; Z91.048 Other nonmedicinal substance allergy status; Z96.641 Presence of right artificial hip joint